=== PATIENT | male | born 1980 | race Hispanic/Latino ===

== ENCOUNTER → 2017-05-24 | Outpatient (CLI) | payer MEDICARE ==
[~2017-05-24] MED LIST: MULTIVITAMINS1 EAC7 PO; MYRBETRIQ50 MG PO; PANTOPRAZOLE SO40 MG PO; RISPERDAL1 MG PO
--- NOTE | 2017-05-25 00:21 | Diagnostic Imaging Report ---
History: Back pain. Comparison studies: None Technique: Sagittal , coronal and axial T2 , sagittal T1 and IR, axial PD and T2 FS. Intravenous contrast: None Findings: Number of lumbar vertebral bodies: 5. Alignment: Normal lordosis. No scoliosis. Soft tissues: No T2 hyperintense inflammatory changes. Paraspinal muscles: No signal abnormalities. Well-preserved. No atrophic changes Lower thoracic cord: Normal in signal and morphology. The tip of the conus is at T12-L1 . Cauda equina: No masses. No arachnoiditis. Vertebrae: No compression fractures, infection or neoplasm. Degenerative changes: L1-L2: Mild degenerative disc disease with decreased intervertebral disc space and endplate Schmorl's node. L2-L3: No abnormalities L3-L4: Mild bilateral facet arthrosis. No canal or foraminal stenosis. L4-L5: Disc bulge asymmetric to left without canal stenosis. Thickened ligamentum flavum and bilateral facet arthrosis. No foraminal stenosis. L5-S1: Mild degenerative disc disease with decreased intervertebral disc space. Disc bulge in combination with thickened ligamentum flavum and predominantly epidural lipomatosis at this level results in moderate canal stenosis. No foraminal stenosis. Visualized bilateral sacroiliac joints: No significant abnormality. IMPRESSION: 1. Mild multilevel lumbar spondylosis, particularly with moderate canal stenosis at L5-S1 predominantly due to epidural lipomatosis in combination with disc bulge and thickened ligamentum flavum. 2. No significant foraminal stenosis. 3. Mild multilevel degenerative disc disease as above. Signed by: Dr. Joanna Goodman M.D. on 05/25/2017 12:18 AM
== END ==
LOC: MRI 11:34
PROVIDERS: ATTEND Internal Medicine
DX: M47.816 Spondylosis without myelopathy or radiculopathy, lumbar region (principal)
CPT/HCPCS: 72148